=== PATIENT | female | born 1985 | race Caucasian/White ===

== ENCOUNTER 2019-03-13 10:31 | Inpatient (IN) | payer OTHER ==
[2019-03-13 10:59] VITALS: BMI 21.5
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
[2019-03-13] MEDS ORDERED: ACETAMINOPHEN 325 MG TABLET (FP) PO PRN ×2 (12:09)
[2019-03-13] MEDS ORDERED: IBUPROFEN 400 MG TABLET (FP) PO PRN (12:09)
[2019-03-13] MEDS ORDERED: MAGNESIUM HYDROX 2400MG/30ML ORAL SUSPENSION 30 ML CUP PO PRN (12:09)
[2019-03-13] MEDS ORDERED: MELATONIN 5 MG TABLETS PO PRN (12:09)
[2019-03-13] MEDS ORDERED: MAG HYDROX/AL HYDROX/SIMETH 30 ML UNIT-DOSE CUP PO PRN (12:09)
[2019-03-13] MEDS ORDERED: MENTHOL/PHENOL 1 EACH UD MM PRN (12:09)
[2019-03-13] MEDS ORDERED: BISMUTH SUBSALICYLATE 262 MG/15 ML BTL PO PRN (12:09)
[2019-03-13] MEDS ORDERED: MAGNESIUM CITRATE 300 ML BOTTLE PO PRN (12:09)
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
[2019-03-13] MEDS: LORazepam 1 MG TABLET PO PRN (13:05)
[2019-03-13] MEDS: LORazepam 2 MG TABLET PO ONE ×2 (13:09→14:53)
[2019-03-13] MEDS: levETIRAcetam 500 MG TABLET (FP) PO SCH ×2 (13:10→22:16)
[2019-03-13] MEDS: NICOTINE 21 MG/24 HOURS TOPICAL PATCH TD SCH (14:33)
[2019-03-13] MEDS: hydrOXYzine PAMOATE 25 MG CAPSULE (FP) PO PRN (14:44)
[2019-03-13] MEDS: METHOCARBAMOL 500 MG TABLET PO PRN (14:44)
[2019-03-13 16:29] LABS: HEMATOCRIT 37.1 % (32.4-45.2); HEMOGLOBIN 12.8 GM/dL (10.7-15.3); MCH 32.2 pg (25.7-33.7); MCHC 34.4 g/dl (32.0-36.0); MEAN CELL VOLUME 93.8 fl (80-96); MEAN PLT VOLUME 8.2 fl (7.5-11.1); PLATELET COUNT 279 K/MM3 (134-434); RBC 3.96 M/mm3 (3.60-5.2); RDW 16.2 % (11.6-15.6); WHITE BLOOD COUNT 4.7 K/mm3 (4.0-10.0)
[2019-03-13] MEDS: LORazepam 2 MG TABLET PO SCH ×2 (16:37→22:16)
[2019-03-13 16:45] LABS: ALBUMIN 4.1 g/dl (3.4-5.0); BILIRUBIN,TOTAL 1.2 mg/dL (0.2-1); BLOOD UREA NITROGEN 5.9 mg/dL (7-18); CALCIUM 9.3 mg/dL (8.5-10.1); CREATININE 0.7 mg/dL (0.55-1.3); POTASSIUM 3.3 mmol/L (3.5-5.1); TOT PROT 7.5 g/dl (6.4-8.2)
[2019-03-13] MEDS: THIAMINE HCL 100 MG TABLET (FP) PO SCH (22:16)
[2019-03-14] MEDS: LORazepam 2 MG TABLET PO SCH ×4 (05:13→22:36)
[2019-03-14] MEDS: NICOTINE 21 MG/24 HOURS TOPICAL PATCH TD SCH (10:43)
[2019-03-14] MEDS: PRENATAL VITAMINS W/ FOLIC ACID TABLET (FP) PO SCH (10:43)
[2019-03-14] MEDS: levETIRAcetam 500 MG TABLET (FP) PO SCH ×2 (10:43→22:36)
--- NOTE | 2019-03-14 12:08 | PN ---
[facility] CIWA - CIWA Score Nausea/Vomitin-Mild Nausea/No Vomiting Muscle Tremors: 3 Anxiety: 3 Agitation: 2 Paroxysmal Sweats: 2 Orientation: 0-Oriented Tacttile Disturbances: 0-None Auditory Disturbances: 0-None Visual Disturbances: 0-None Headache: 0-None Present CIWA-Ar Total Score: 11 BHS Progress Note (SOAP) Subjective: sweats shakes interrupted sleep agitation chills Objective: 03/14/19 12:03 Vital Signs Temperature 98.2 F 03/14/19 09:32 Pulse Rate 101 H 03/14/19 09:32 Respiratory Rate 20 03/14/19 09:32 Blood Pressure 106/70 03/14/19 09:32 O2 Sat by Pulse Oximetry (%) Laboratory Tests 03/13/19 03/13/19 03/13/19 12:00 12:00 12:00 WBC 4.7 RBC 3.96 Hgb 12.8 Hct 37.1 MCV 93.8 MCH 32.2 D MCHC 34.4 RDW 16.2 H Plt Count 279 D MPV 8.2 D Sodium 132 L Potassium 3.3 L Chloride 91 L Carbon Dioxide 28 Anion Gap 14 BUN 5.9 L Creatinine 0.7 Est GFR (CKD-EPI)AfAm 131.02 Est GFR (CKD-EPI)NonAf 113.04 Random Glucose 87 Calcium 9.3 Total Bilirubin 1.2 H AST 92 H ALT 52 Alkaline Phosphatase 196 H Total Protein 7.5 Albumin 4.1 RPR Titer Nonreactive HIV 1&2 Antibody Screen HIV P24 Antigen 03/14/19 05:50 WBC RBC Hgb Hct MCV MCH MCHC RDW Plt Count MPV Sodium Potassium Chloride Carbon Dioxide Anion Gap BUN Creatinine Est GFR (CKD-EPI)AfAm Est GFR (CKD-EPI)NonAf Random Glucose Calcium Total Bilirubin AST ALT Alkaline Phosphatase Total Protein Albumin RPR Titer HIV 1&2 Antibody Screen Preliminary positive A HIV P24 Antigen Negative labs noted; low potassium HIV preliminary + noted; awaiting confirmation from lab [facility] aaox3 ambulating no acute distress Assessment: 03/14/19 12:06 withdrawals Plan: continue detox increase fluids kdur ordered awaiting confirmatory from [facility] regarding preliminary +HIV status.
[2019-03-14] MEDS: POTASSIUM CHLORIDE TABS 20 MEQ TABLET.ER (FP) PO SCH (12:45)
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
[2019-03-14] MEDS: hydrOXYzine PAMOATE 25 MG CAPSULE (FP) PO PRN (20:09)
[2019-03-14] MEDS: LORazepam 1 MG TABLET PO PRN (20:09)
[2019-03-14] MEDS: THIAMINE HCL 100 MG TABLET (FP) PO SCH (22:36)
[2019-03-14] MEDS: traZODone HCL 50 MG TABLET (FP) PO SCH (22:36)
[2019-03-14] MEDS: METHOCARBAMOL 500 MG TABLET PO PRN (22:38)
[2019-03-15] MEDS: LORazepam 1 MG TABLET PO SCH ×4 (05:14→22:21)
[2019-03-15] MEDS: PRENATAL VITAMINS W/ FOLIC ACID TABLET (FP) PO SCH (10:36)
[2019-03-15] MEDS: NICOTINE 21 MG/24 HOURS TOPICAL PATCH TD SCH (10:36)
[2019-03-15] MEDS: levETIRAcetam 500 MG TABLET (FP) PO SCH ×2 (10:36→22:21)
[2019-03-15] MEDS: POTASSIUM CHLORIDE TABS 20 MEQ TABLET.ER (FP) PO SCH (10:36)
[2019-03-15] MEDS: hydrOXYzine PAMOATE 25 MG CAPSULE (FP) PO PRN ×2 (10:44→19:01)
[2019-03-15] MEDS: LORazepam 1 MG TABLET PO PRN (14:50)
--- NOTE | 2019-03-15 17:04 | PN ---
[facility] CIWA - CIWA Score Nausea/Vomitin-Mild Nausea/No Vomiting Muscle Tremors: 2 Anxiety: 2 Agitation: 2 Paroxysmal Sweats: 2 Orientation: 0-Oriented Tacttile Disturbances: 0-None Auditory Disturbances: 0-None Visual Disturbances: 0-None Headache: 0-None Present CIWA-Ar Total Score: 9 S Progress Note (SOAP) Subjective: Back pain, sweating, tremor, chills, poor appetite, dry heaves (state zofran and tigan PO and Injection doesn't work and doesn't want it), spasm Objective: 03/15/19 17:00 Last Vital Signs Temp Pulse Resp BP Pulse Ox 97.2 F L 100 H 18 108/73 03/15/19 14:07 03/15/19 14:07 03/15/19 14:07 03/15/19 14:07 Laboratory Tests 03/13/19 03/13/19 03/13/19 12:00 12:00 12:00 WBC 4.7 RBC 3.96 Hgb 12.8 Hct 37.1 MCV 93.8 MCH 32.2 D MCHC 34.4 RDW 16.2 H Plt Count 279 D MPV 8.2 D Sodium 132 L Potassium 3.3 L Chloride 91 L Carbon Dioxide 28 Anion Gap 14 BUN 5.9 L Creatinine 0.7 Est GFR (CKD-EPI)AfAm 131.02 Est GFR (CKD-EPI)NonAf 113.04 Random Glucose 87 Calcium 9.3 Total Bilirubin 1.2 H AST 92 H ALT 52 Alkaline Phosphatase 196 H Total Protein 7.5 Albumin 4.1 RPR Titer Nonreactive HIV 1&2 Antibody Screen HIV P24 Antigen 03/14/19 05:50 WBC RBC Hgb Hct MCV MCH MCHC RDW Plt Count MPV Sodium Potassium Chloride Carbon Dioxide Anion Gap BUN Creatinine Est GFR (CKD-EPI)AfAm Est GFR (CKD-EPI)NonAf Random Glucose Calcium Total Bilirubin AST ALT Alkaline Phosphatase Total Protein Albumin RPR Titer HIV 1&2 Antibody Screen Preliminary positive A HIV P24 Antigen Negative Labs reviewed: K 3.3 (low), Na 132 (low), elevated LFTs Assessment: 03/15/19 17:02 Withdrawal sxs Noted with hyponatremia, hypokalemia and elevated LFTs Plan: Continue detox Encouraged PO water intake Hyponatremia: continue regular diet, repeat serum Na level Hypokalemia: replenished, repeat serum K level Elevated LFTs: repeat hepatic function panel; will order CMP in AM
[2019-03-15] MEDS: METHOCARBAMOL 500 MG TABLET PO PRN (17:14)
[2019-03-15] MEDS: THIAMINE HCL 100 MG TABLET (FP) PO SCH (22:21)
[2019-03-15] MEDS: traZODone HCL 50 MG TABLET (FP) PO SCH (22:21)
[2019-03-16] MEDS ORDERED: LORazepam 0.5 MG TABLET PO PRN
[2019-03-16] MEDS: LORazepam 0.5 MG TABLET PO SCH ×4 (05:40→22:06)
[2019-03-16 10:13] LABS: ALBUMIN 3.3 g/dl (3.4-5.0); BILIRUBIN,TOTAL 0.3 mg/dL (0.2-1); BLOOD UREA NITROGEN 11.3 mg/dL (7-18); CALCIUM 9.1 mg/dL (8.5-10.1); CREATININE 0.5 mg/dL (0.55-1.3)
[2019-03-16] MEDS: PRENATAL VITAMINS W/ FOLIC ACID TABLET (FP) PO SCH (10:51)
[2019-03-16] MEDS: POTASSIUM CHLORIDE TABS 20 MEQ TABLET.ER (FP) PO SCH (10:51)
[2019-03-16] MEDS: levETIRAcetam 500 MG TABLET (FP) PO SCH ×2 (10:52→21:14)
[2019-03-16] MEDS: NICOTINE 21 MG/24 HOURS TOPICAL PATCH TD SCH (10:52)
--- NOTE | 2019-03-16 12:09 | PN ---
[facility] CIWA - CIWA Score Nausea/Vomitin-No Nausea/No Vomiting Muscle Tremors: 2 Anxiety: 1-Mildly Anxious Agitation: 1-Slight > Activity Paroxysmal Sweats: No Perspiration Orientation: 0-Oriented Tacttile Disturbances: 0-None Auditory Disturbances: 0-None Visual Disturbances: 0-None Headache: 0-None Present CIWA-Ar Total Score: 4 BHS Progress Note (SOAP) Subjective: tired Objective: 03/16/19 12:08 Vital Signs Temperature 98.2 F 03/16/19 09:29 Pulse Rate 83 03/16/19 09:29 Respiratory Rate 18 03/16/19 09:29 Blood Pressure 90/59 L 03/16/19 09:29 O2 Sat by Pulse Oximetry (%) Laboratory 03/13/19 03/13/19 03/13/19 12:00 12:00 12:00 WBC 4.7 K/mm3 K/mm3 (4.0-10.0) RBC 3.96 M/mm3 M/mm3 (3.60-5.2) Hgb 12.8 GM/dL GM/dL (10.7-15.3) Hct 37.1 % % (32.4-45.2) MCV 93.8 fl fl (80-96) MCH 32.2 pg D pg (25.7-33.7) MCHC 34.4 g/dl g/dl (32.0-36.0) RDW 16.2 % H % (11.6-15.6) Plt Count 279 K/MM3 D K/MM3 (134-434) MPV 8.2 fl D fl (7.5-11.1) Sodium 132 mmol/L L mmol/L (136-145) Potassium 3.3 mmol/L L mmol/L (3.5-5.1) Chloride 91 mmol/L L mmol/L (98-107) Carbon Dioxide 28 mmol/L mmol/L (21-32) Anion Gap 14 MMOL/L MMOL/L (8-16) BUN 5.9 mg/dL L mg/dL (7-18) Creatinine 0.7 mg/dL mg/dL (0.55-1.3) Est GFR (CKD-EPI)AfAm 131.02 Est GFR (CKD-EPI)NonAf 113.04 Random Glucose 87 mg/dL mg/dL (74-106) Calcium 9.3 mg/dL mg/dL (8.5-10.1) Total Bilirubin 1.2 mg/dL H mg/dL (0.2-1) AST 92 U/L H U/L (15-37) ALT 52 U/L U/L (13-61) Alkaline Phosphatase 196 U/L H U/L (45-117) Total Protein 7.5 g/dl g/dl (6.4-8.2) Albumin 4.1 g/dl g/dl (3.4-5.0) RPR Titer Nonreactive (NONREACTIVE) HIV 1&2 Antibody Screen HIV P24 Antigen 03/14/19 03/16/19 05:50 08:15 WBC RBC Hgb Hct MCV MCH MCHC RDW Plt Count MPV Sodium 137 mmol/L mmol/L (136-145) Potassium 4.0 mmol/L mmol/L (3.5-5.1) Chloride 103 mmol/L mmol/L (98-107) Carbon Dioxide 30 mmol/L mmol/L (21-32) Anion Gap 4 MMOL/L L MMOL/L (8-16) BUN 11.3 mg/dL mg/dL (7-18) Creatinine 0.5 mg/dL L mg/dL (0.55-1.3) Est GFR (CKD-EPI)AfAm 146.35 Est GFR (CKD-EPI)NonAf 126.27 Random Glucose 95 mg/dL mg/dL (74-106) Calcium 9.1 mg/dL mg/dL (8.5-10.1) Total Bilirubin 0.3 mg/dL mg/dL (0.2-1) AST 45 U/L H U/L (15-37) ALT 44 U/L U/L (13-61) Alkaline Phosphatase 193 U/L H U/L (45-117) Total Protein 6.0 g/dl L g/dl (6.4-8.2) Albumin 3.3 g/dl L g/dl (3.4-5.0) RPR Titer HIV 1&2 Antibody Screen Preliminary positive A HIV P24 Antigen Negative aaox3 ambulating no acute distress HIV confirmatory pending Assessment: 03/16/19 12:09 mild withdrawals Plan: continue detox d/c in am
[2019-03-16] MEDS: hydrOXYzine PAMOATE 25 MG CAPSULE (FP) PO PRN (14:48)
[2019-03-16] MEDS: METHOCARBAMOL 500 MG TABLET PO PRN (14:48)
[2019-03-16] MEDS: traZODone HCL 50 MG TABLET (FP) PO SCH (21:14)
[2019-03-16] MEDS: THIAMINE HCL 100 MG TABLET (FP) PO SCH (21:14)
[2019-03-17] MEDS ORDERED: LORazepam 0.5 MG TABLET PO ONE (05:00)
[2019-03-17 07:53] VITALS: BP 93/64; PULSE 64; TEMP 97.9
--- NOTE | 2019-03-17 09:12 | PN ---
[facility] CIWA - CIWA Score Nausea/Vomitin-No Nausea/No Vomiting Muscle Tremors: 1-None Visible, but Avis Anxiety: 1-Mildly Anxious Agitation: 0-Normal Activity Paroxysmal Sweats: No Perspiration Orientation: 0-Oriented Tacttile Disturbances: 0-None Auditory Disturbances: 0-None Visual Disturbances: 0-None Headache: 0-None Present CIWA-Ar Total Score: 2 BHS Progress Note (SOAP) Subjective: alert,no complaint Objective: 03/17/19 09:11 Vital Signs Temperature 97.9 F 03/17/19 07:52 Pulse Rate 64 03/17/19 07:52 Respiratory Rate 16 03/17/19 07:52 Blood Pressure 93/64 03/17/19 07:52 O2 Sat by Pulse Oximetry (%) Assessment: 03/17/19 09:11 detox completed,no withdrawal symptom Plan: discharge today,follow up with [facility]
[2019-03-17] MEDS: levETIRAcetam 500 MG TABLET (FP) PO SCH (09:14)
[2019-03-17] MEDS: PRENATAL VITAMINS W/ FOLIC ACID TABLET (FP) PO SCH (09:14)
[2019-03-17] MEDS: NICOTINE 21 MG/24 HOURS TOPICAL PATCH TD SCH (09:15)
--- NOTE | 2019-03-17 09:16 | DS ---
[facility] Detox Discharge Summary Admission Date: 03/13/19 Discharge Date: 03/17/19 - History Present History: Alcohol Dependence Additional Comments: follow up with after care as arrangement [facility] as arrangement Pertinent Past History: seizure - Physical Exam Results Vital Signs: Vital Signs Temperature 97.9 F 03/17/19 07:52 Pulse Rate 64 03/17/19 07:52 Respiratory Rate 16 03/17/19 07:52 Blood Pressure 93/64 03/17/19 07:52 O2 Sat by Pulse Oximetry (%) Pertinent Admission Physical Exam Findings: withdrawal signs and symptom Vital Signs Temperature 97.9 F 03/17/19 07:52 Pulse Rate 64 03/17/19 07:52 Respiratory Rate 16 03/17/19 07:52 Blood Pressure 93/64 03/17/19 07:52 O2 Sat by Pulse Oximetry (%) Laboratory Last Values WBC 4.7 K/mm3 (4.0-10.0) 03/13/19 12:00 RBC 3.96 M/mm3 (3.60-5.2) 03/13/19 12:00 Hgb 12.8 GM/dL (10.7-15.3) 03/13/19 12:00 Hct 37.1 % (32.4-45.2) 03/13/19 12:00 MCV 93.8 fl (80-96) 03/13/19 12:00 MCH 32.2 pg (25.7-33.7) D 03/13/19 12:00 MCHC 34.4 g/dl (32.0-36.0) 03/13/19 12:00 RDW 16.2 % (11.6-15.6) H 03/13/19 12:00 Plt Count 279 K/MM3 (134-434) D 03/13/19 12:00 MPV 8.2 fl (7.5-11.1) D 03/13/19 12:00 Sodium 137 mmol/L (136-145) 03/16/19 08:15 Potassium 4.0 mmol/L (3.5-5.1) 03/16/19 08:15 Chloride 103 mmol/L (98-107) 03/16/19 08:15 Carbon Dioxide 30 mmol/L (21-32) 03/16/19 08:15 Anion Gap 4 MMOL/L (8-16) L 03/16/19 08:15 BUN 11.3 mg/dL (7-18) 03/16/19 08:15 Creatinine 0.5 mg/dL (0.55-1.3) L 03/16/19 08:15 Est GFR (CKD-EPI)AfAm 146.35 03/16/19 08:15 Est GFR (CKD-EPI)NonAf 126.27 03/16/19 08:15 Random Glucose 95 mg/dL (74-106) 03/16/19 08:15 Calcium 9.1 mg/dL (8.5-10.1) 03/16/19 08:15 Total Bilirubin 0.3 mg/dL (0.2-1) 03/16/19 08:15 AST 45 U/L (15-37) H 03/16/19 08:15 ALT 44 U/L (13-61) 03/16/19 08:15 Alkaline Phosphatase 193 U/L (45-117) H 03/16/19 08:15 Total Protein 6.0 g/dl (6.4-8.2) L 03/16/19 08:15 Albumin 3.3 g/dl (3.4-5.0) L 03/16/19 08:15 RPR Titer Nonreactive (NONREACTIVE) 03/13/19 12:00 HIV 1&2 Antibody Screen Preliminary positive A 03/14/19 05:50 HIV P24 Antigen Negative 03/14/19 05:50 - Treatment Hospital Course: Detox Protocol Followed - Medication Discharge Medications: Ambulatory Orders traZODone HCL [Desyrel -] 150 mg PO HS #30 tablet 01/31/15 Clonidine HCl [Catapres] 0.1 mg PO HS 03/13/19 Lorazepam [Ativan] 2 mg PO PRN PRN 03/13/19 levETIRAcetam [Keppra -] 500 mg PO BID 03/13/19 - Diagnosis (1) Alcohol dependence Current Visit: Yes Status: Chronic (2) History of posttraumatic stress disorder (PTSD) Current Visit: Yes Status: Chronic (3) Nicotine dependence Current Visit: Yes Status: Chronic (4) Alcohol withdrawal seizure Current Visit: No Status: Chronic (5) Depression Current Visit: No Status: Chronic (6) Hypokalemia Current Visit: Yes Status: Acute - AMA Did Patient Leave Against Medical Advice: No
== END 2019-03-17 09:20 | disposition home or self-care (01) | DRG 775 ==
LOC: YASAS 10:31 → Y6N 12:30
PROVIDERS: ADMIT Allergy & Immunology; ATTEND Allergy & Immunology
PROC: HZ2ZZZZ Detoxification Services for Substance Abuse Treatment (ICD-10-PCS; principal; 2019-03-13)
DX: F10.230 Alcohol dependence with withdrawal, uncomplicated (principal); F17.210 Nicotine dependence, cigarettes, uncomplicated; F32.9 Major depressive disorder, single episode, unspecified; F19.24 Other psychoactive substance dependence with psychoactive substance-induced mood disorder; E87.6 Hypokalemia; E87.1 Hypo-osmolality and hyponatremia; R94.5 Abnormal results of liver function studies; G47.00 Insomnia, unspecified; G40.909 Epilepsy, unspecified, not intractable, without status epilepticus; Q76.0 Spina bifida occulta; Z91.011 Allergy to milk products; Z91.040 Latex allergy status; Z91.5 Personal history of self-harm
CPT/HCPCS: 36415; 71046-TC-FY; 80053; 85027; 86593; 87389